=== PATIENT | female | born 2000 | race Two or more races ===

== ENCOUNTER 2022-12-10 02:30 | Emergency (ER) | payer OTHER ==
[~2022-12-10] VITALS: Ht 177.8 cm; Wt 43.5 kg
[~2022-12-10 02:30] MED LIST: NO TOMA MEDICAMENTO
[2022-12-10] MEDS ORDERED: ONDANSETRON ODT4 MG PO (08:03)
[2022-12-10] MEDS ORDERED: CEPHALEXIN250 MG/5 M PO (08:03)
[2022-12-10] MEDS ORDERED: PEPCID40 MG PO (08:03)
== END 2022-12-10 08:19 ==
LOC: ER 02:30 → EMR PED 02:30 → ER 05:56
DX: N39.0 Urinary tract infection, site not specified (principal); R11.10 Vomiting, unspecified; Z91.013 Allergy to seafood; Z88.1 Allergy status to other antibiotic agents

== ENCOUNTER → 2023-05-24 | Day surgery (SDC) | payer OTHER ==
[2023-05-20 12:54] LABS: HEMATOCRIT 38.3 % (36.0-45.00); HEMOGLOBIN 13.2 g/dL (12.0-15.00); MEAN CELL VOLUME 85.2 fL (80.00-100.00); MEAN CORPUSCULAR HEMOGLOBIN 29.4 pg (27.00-32.0); MEAN CORPUSCULAR HGB CONC 34.5 g/dl (32.0-36.0); PLATELET COUNT 325 K/uL (150-450); RED CELL DISTRIBUTION WIDTH 14.6 % (11.5-14.5)
[2023-05-20 13:13] LABS: INR 1.06; PARTIAL THROMBOPLASTIN TIME 30.1 SECONDS (22.0-34.0); PROTHROMBIN TIME 11.1 SECONDS (9.0-11.5)
[2023-05-20 13:26] LABS: ALBUMIN 4.3 gm/dL (3.4-5.0); BILIRUBIN TOTAL 0.67 mg/dL (0.3-1.2); CALCIUM 9.7 mg/dL (8.5-10.1); CREATININE SERUM 0.71 mg/dL (0.55-1.02); GFR 102.94; GLOBULINA 3.8 G/DL (2.4-3.5); POTASSIUM 4.05 mEq/L (3.5-5.1); TOTAL PROTEIN 8.1 gm/dL (6.4-8.2)
[~2023-05-24] MED LIST changes: +CEPHALEXIN250 MG/5 M PO; +COLACE100 MG PO; +NEURONTIN300 MG PO; +ONDANSETRON ODT4 MG PO; +PEPCID40 MG PO; +PERCOCET 5-3251 EACH PO; +PROAIR RESPICL90 MCG
== END | disposition home or self-care (01) ==
LOC: ADM 05-20 08:30 → CIR.AMB 05:22
PROVIDERS: ATTEND Surgery
DX: K64.0 First degree hemorrhoids (principal); K64.4 Residual hemorrhoidal skin tags; K64.8 Other hemorrhoids; K62.89 Other specified diseases of anus and rectum; Z88.6 Allergy status to analgesic agent

== ENCOUNTER 2024-06-29 17:12 | Emergency (ER) | payer OTHER ==
[~2024-06-29] VITALS: Ht 152.4 cm; Wt 44.5 kg
[2024-06-29] MEDS ORDERED: IPRATROPIUM/ALBUTEROL SULFATE 3 ML AMPUL.NEB IH SCH (21:45)
[2024-06-29 23:18] LABS: HEMATOCRIT 35.2 % (36.0-45.00); HEMOGLOBIN 11.8 g/dL (12.0-15.00); MEAN CELL VOLUME 82.4 fL (80.00-100.00); MEAN CORPUSCULAR HEMOGLOBIN 27.7 pg (27.00-32.0); MEAN CORPUSCULAR HGB CONC 33.6 g/dl (32.0-36.0); PLATELET COUNT 302 K/uL (150-450); RED BLOOD COUNT 4.27 M/uL (4.00-6.00); RED CELL DISTRIBUTION WIDTH 16.2 % (11.5-14.5)
[2024-06-30] MEDS ORDERED: GILTUSS COUGH-118 M1 PO (01:17)
== END 2024-06-30 01:58 | disposition home or self-care (01) ==
LOC: ER 17:14
PROVIDERS: Preventive Medicine Public Health & General Preventive Medicine
DX: J06.9 Acute upper respiratory infection, unspecified (principal); J45.909 Unspecified asthma, uncomplicated; Z91.013 Allergy to seafood; Z88.6 Allergy status to analgesic agent; Z20.822 Contact with and (suspected) exposure to COVID-19